=== PATIENT | female | born 1960 | race American Indian/Alaskan Native ===

== ENCOUNTER 2025-02-17 14:25 | Emergency (ER) | payer MEDICAID, SELFPAY ==
[2025-02-17 14:28] VITALS: BP 132/83; PULSE 72; RESP 19; TEMP 36.7; O2SAT 98
[2025-02-17 14:29] VITALS: BMI 25.7
--- NOTE | 2025-02-17 14:35 | EDNOTE_ITS ---
<Statement entered by Sayra Lauren MD - 02/17/25 16:00> As co-signing physician, I was present and available for consult prn. I concur with the plan and care as documented by the midlevel provider. ED General RME/HPI General Chief complaint: Medical Clearance Stated complaint: DETENTION CHECK Time Seen by Provider: 02/17/25 14:34 Arrival date/time: 02/17/25 14:25 CC: Medical clearance HPI patient has a laceration resulting from the arrest per the patient lacerated his over the left muslim. Patient denies LOC. Patient states he was climbing over a fence and then got tackled. Patient has no other complaints he is rambling on incessantly. Related Data Previous Rx's ?Medication ?Instructions ?Recorded Lactobacillus rhamnosus GG 10 1 cap PO BID #20 caps billion cell capsule (Culturelle) Allergies Allergy/AdvReac Type Severity Reaction Status Date / Time NKA Allergy Unknown Uncoded 02/17/25 14:30 Review of Systems Review of Systems Narrative Review of Systems: GEN: No fever, no chills, no weight loss EYES: No discharge, no visual changes, no pain HEENT: No ear pain, no congestion, no sore throat PULM: No shortness of breath, no cough, no congestion CV: No chest pain, no dyspnea on exertion, no palpitations GI: No nausea, no vomiting, no diarrhea, no pain, no constipation : No frequency, no urgency, no dysuria MUSC/SKEL: No joint pain, no back pain SKIN: + Laceration, no rash PSYCH: No hallucinations, no depression HEME/LYMPH: No easy bleeding or bruising tendencies NEURO: No weakness, no headache Past Medical History Past Medical History OTHER HISTORY: Negative Blood Transfusions Social History SMOKING STATUS: Current every day smoker ED Exam Narrative Physical exam: [General: Not in any acute distress Head normocephalic, no step-offs hematoma induration ulceration or crepitus. HEENT: Eyes pupils are PERRLA EOMs are intact mouth [place] dry membranes uvula is midline swallow symmetrical phonation is normal. Within acceptable limits Neck is supple nontender no edema or erythema. Chest equal chest rise nontender to palpation Respiratory: Clear to auscultation no wheezes crackles or rubs CV: Rate rhythm is regular no murmurs rubs or clicks Abdomen is distended secondary to body habitus soft nontender no masses positive bowel sounds all 4 quadrants Back: No CVA tenderness no spinous process tenderness from cervical spine thoracic and lumbar spine Skin: 1 cm full-thickness laceration to the left muslim. No active bleeding. Otherwise skin is intact no petechiae rash induration ulceration or crepitus Extremities: Moving all extremity against resistance cap refill less than 2 seconds neurosensory intact Neuro: Awake alert oriented x3 [place]ow coma 15 no focal deficits] Course Quality Measures none Vital Signs Vital signs: Vital Signs Temperature 98.0 F 02/17/25 14:28 Pulse Rate 72 02/17/25 14:28 Respiratory Rate 19 02/17/25 14:28 Blood Pressure 132/83 H 02/17/25 14:28 Pulse Oximetry (%) 98 02/17/25 14:28 Oxygen Delivery Method Room Air 02/17/25 14:28 PROCEDURES: Procedure Comment Site was cleaned no foreign body after probing, site with Dermabond with good approximation without complication patient tolerated the procedure well. Discharge Plan Plan Patient Disposition: Custodial/Court/Law Patient condition on transfer: Stable Prescriptions/Referrals Prescriptions/Med Rec: No Action Lactobacillus rhamnosus GG [Culturelle] 1 CAP capsule 1 cap PO BID Qty: 20 0RF Problem List Clinical Impression: Medical clearance for incarceration, Laceration of face Patient/Caregiver Discharge Instructions Education Materials: ED Laceration: All Closures Print Language: Serbian PA/KENO WRITER/RUNNER Supervising Physician PA/KENO WRITER/RUNNER Supervising Physician: Eliud Kenyon ENP
== END 2025-02-17 15:03 ==
LOC: SERX 14:48
PROVIDERS: Emergency Provider Emergency Medicine
DX: Z02.89 Encounter for other administrative examinations (principal); S01.81XA Laceration without foreign body of other part of head, initial encounter; Y35.813A Legal intervention involving manhandling, suspect injured, initial encounter; Y93.39 Activity, other involving climbing, rappelling and jumping off
CPT/HCPCS: 99281

== ENCOUNTER 2025-02-28 18:25 | Emergency (ER) | payer MEDICAID, SELFPAY ==
[2025-02-28 18:26] VITALS: BMI 25.7
[2025-02-28 18:46] VITALS: BP 113/62; PULSE 77; RESP 20; TEMP 37.4; O2SAT 97
--- NOTE | 2025-02-28 18:58 | XR_ITS ---
EXAMINATION: Sacrum and coccyx 3 views TECHNIQUE: AP, inclined AP lateral sacrum and coccyx 3 views Date and time: February 28, 2025, 192 hours INDICATIONS: Patient fell today with injury of the sacrum, sacral pain FINDINGS: Symmetrical sacral foramina No acute sacrococcygeal fracture IMPRESSION: No acute sacral or coccygeal fracture
--- NOTE | 2025-02-28 18:58 | XR_ITS ---
EXAMINATION: Lumbar spine 3 views TECHNIQUE: AP lateral: Lateral lower lumbar spine 3 views. Date and time: February 28, 2025, 191 hours INDICATIONS: Patient fell today with injury to lower back, lower back pain FINDINGS: Severe osteopenia Lumbar dextroscoliosis 15 degrees No acute lumbar fracture Mild to moderate diffuse lumbar disc narrowing IMPRESSION: No acute lumbar fracture
--- NOTE | 2025-03-01 02:52 | PD.EDBACK ---
ED Back Injury Pain RME/HPI General Chief Complaint: General Adult/Misc Complain Stated Complaint: BUMP TO R BUTTOCKS S/P FALLING ON BUTTOCKS Time Seen by Provider: 02/28/25 18:27 Arrival date/time: 02/28/25 18:25 This is a case of 64-year-old female with no medical history came in in the emergency room due to lower back pain and painful lump on the sacral area after falling incident and hit his sacral area on a stool sustaining hematoma patient denies any head neck chest or abdominal injury or loss of consciousness patient was here 02/17/2025 for medical clearance and laceration repair of the face Limitations: no limitations Related Data Previous Rx's ?Medication ?Instructions ?Recorded Lactobacillus rhamnosus GG 10 1 cap PO BID #20 caps 09/25/16 billion cell capsule (Culturelle) baclofen 10 mg tablet 10 mg PO BID PRN muscle spasm #10 02/28/25 tabs cephalexin 500 mg capsule 500 mg PO Q8H #30 caps 02/28/25 naproxen 500 mg tablet (Naprosyn) 500 mg PO BID PRN pain #20 tabs 02/28/25 Allergies Allergy/AdvReac Type Severity Reaction Status Date / Time NKA Allergy Unknown Uncoded 02/28/25 18:28 Review of Systems Review of Systems Systems Reviewed: All systems reviewed, normal except as documented Constitutional Constitutional: Reports system reviewed and no additional complaints, except as documented and Reports as per HPI ENT Ears, Nose, Mouth, and Throat: Denies neck pain Cardiovascular Cardiovascular: Reports system reviewed and no additional complaints, except as documented and Reports as per HPI Respiratory Respiratory: Reports system reviewed and no additional complaints, except as documented and Reports as per HPI Gastrointestinal Gastrointestinal: Reports system reviewed and no additional complaints, except as documented, Reports as per HPI and Denies abdominal pain Musculoskeletal Musculoskeletal: Reports system reviewed and no additional complaints, except as documented, Reports as per HPI, Reports back pain and Denies neck pain Neurologic Neurologic: Reports system reviewed and no additional complaints, except as documented and Reports as per HPI Past Medical History Past Medical History CARDIAC: Negative Congestive Heart Failure RESPIRATORY: Negative Chronic Obstructive Pulmonary Disease (COPD) GENITOURINARY: Negative Renal Disease ENDOCRINE: Negative Diabetes Mellitus Type 1 or Diabetes Mellitus Type 2 OTHER HISTORY: Negative Blood Transfusions Social History SMOKING STATUS: Light (< 1 pack/day) ED Exam General Limitations: Present no limitations General appearance: Present alert, in no apparent distress and other (Patient is awake alert oriented not in distress nontoxic looking well-hydrated well-nourished) Head Head exam: Present atraumatic; Absent normocephalic or normal inspection Eye Eye exam: Present normal appearance, PERRL and EOMI ENT ENT exam: Present normal exam, normal oropharynx and mucous membranes moist Neck Neck exam: Present normal inspection, full ROM and trachea midline; Absent tenderness, meningismus, lymphadenopathy or thyromegaly Chest Chest inspection: Present normal inspection and symmetric chest wall rise; Absent tenderness Respiratory Respiratory exam: Present normal lung sounds bilaterally; Absent respiratory distress, wheezes, stridor, accessory muscle use or prolonged expiratory phase Cardiovascular Cardiovascular exam: Present regular rate, normal rhythm and normal heart sounds; Absent bradycardia, tachycardia, irregular rhythm, systolic murmur or diastolic murmur Abdominal Exam Abdominal exam: Present soft and normal bowel sounds; Absent distention, tenderness, guarding, rebound, rigidity, diminished bowel sounds, hyperactive bowel sounds, hypoactive bowel sounds or organomegaly Extremities Exam Extremities exam: Present normal inspection and full ROM Back Exam Back exam: Present normal inspection, full ROM and tenderness (Moderate tenderness lumbar area hematoma on the sacral area with mild swelling no paraspinal no paravertebral tenderness no CVA tenderness ROM intact neurovascular intact); Absent CVA tenderness (R), CVA tenderness (L), muscle spasm, paraspinal tenderness, vertebral tenderness, rashes, sciatic notch tenderness (R), sciatic notch tenderness (L), straight leg raise (R) or straight leg raise (L) Neurological Exam Neurological exam: Present alert, oriented X3, CN II-XII intact, normal gait and reflexes normal; Absent motor sensory deficit Psychiatric Psychiatric exam: Present normal affect and normal mood Skin Skin exam: Present warm, dry, intact, normal color and other (Small hematoma sacral area no abscess no cellulitis) Course Quality Measures none Orders Category Date Time Status XR lumbar spine 2-3V Stat Exams 02/28/25 18:58 Completed XR sacrum coccyx min 2V Stat Exams 02/28/25 18:58 Completed Dexamethasone Inj [Decadron Inj] Med 02/28/25 21:13 Discontinued 10 mg IM X1 ONE HYDROcodone*/APAP 5/325 [[place] 5/325] Med 02/28/25 21:13 Discontinued 1 tab PO X1 ONE Vital Signs Vital signs: Vital Signs Temperature 99.3 F 02/28/25 18:46 Pulse Rate 77 02/28/25 18:46 Respiratory Rate 20 02/28/25 18:46 Blood Pressure 113/62 02/28/25 18:46 Pulse Oximetry (%) 97 02/28/25 18:46 Oxygen Delivery Method Room Air 02/28/25 18:46 Oxygen saturation is 97% on room air normal Back Pain / Injury MDM Narrative MDM Narrative:: This is a case of 64-year-old female with no medical history came in in the emergency room due to lower back pain and painful lump on the sacral area after falling incident and hit his sacral area on a stool sustaining hematoma patient denies any head neck chest or abdominal injury or loss of consciousness patient was here 02/17/2025 for medical clearance and laceration repair of the face physical examination patient is awake alert oriented not in distress nontoxic looking mild tenderness on the lumbar area no crepitation no deformity no paraspinal no paravertebral tenderness leg raise exam is negative no CVA tenderness steady gait patient noted a small hematoma on the sacral coccyx area no cellulitis no abscess ROM intact neurovascular intact x-ray of the lumbar and sacral area were normal no fracture no dislocation this patient was given naproxen and baclofen for lumbar sprain and sacral contusion patient was also given cephalexin for hematoma patient will follow-up with PCP for reevaluation and for any worsening symptoms or any emergent concern return precaution in the ER is advised Patient was discharged with comfortable condition walking with stable gait. Patient verbalized no further complains explained diagnosis and answered patient question. Patient is comfortable with the proposed management plan including the need to follow up with his/her primary care physician and any specialist if applicable Discussed patient for any urgent condition or worsening sx, He/She needed to go to emergency room immediately or call 911. Patient acknowledge the responsibility to follow up as instructed and to monitor her/his symptoms. For any persistence of the symptoms for more than 3-5 days return precaution advised. Discussed the result of the test and was given printed discharge instruction Patient data External records reviewed:: [facility] previous records Clinical information provided by:: patient Social determinants that could affect healthcare access:: none Patient has the following chronic illnesses:: None How is presenting disease/condition affected by chronic disease/condition?: no chronic disease Evaluation data The following diagnostics were reviewed and interpreted by me:: radiology exam(s) Lab and/or radiology exams considered but not ordered:: Reviewed Interpretation Summary: Reviewed Medications / Prescriptions Medications or Prescriptions considered but not ordered:: Given Medication administrations:: Medication Administration History Discontinued Medications Hydrocodone Bitart/Acetaminophen (Hydrocodone/Apap 5/325 Tablet) 1 tab PO X1 ONE Stop: 02/28/25 21:14 Dexamethasone Sodium Phosphate (Dexamethasone Sod Phos Inj 10 Mg/Ml Vial) 10 mg IM X1 ONE Stop: 02/28/25 21:14 Given Consultations Consultation(s) initiated? (list below): No Diagnosis Differential diagnosis back pain/injury: other (Contusion and sprain) Most likely diagnosis given after review of the tests above:: Contusion sprain Admission Indicated Admission indicated?: not indicated Explain why admission is indicated or not indicated:: Not indicated Admission Request Was there a request for admission?: No Admission Attestation Admission request attestation: Not indicated Disposition Plan Disposition Plan: Discharge Discharge Attestation Discharge Attestation: The patient and all family members were given an opportunity to ask questions and understood the discharge instructions. Discharge instructions specifically effects, indications for sooner follow up or return to the emergency department, and the expected course of current diagnosis. Patient condition: Stable Discharge Plan Plan Patient Disposition: HOME (Self Care) Patient condition on transfer: Stable Prescriptions/Referrals Prescriptions/Med Rec: New naproxen [Naprosyn] 500 mg tablet 500 mg PO BID PRN (Reason: pain) Qty: 20 0RF baclofen 10 mg tablet 10 mg PO BID PRN (Reason: muscle spasm) Qty: 10 0RF cephalexin 500 mg capsule 500 mg PO Q8H Qty: 30 0RF No Action Lactobacillus rhamnosus GG [Culturelle] 1 CAP capsule 1 cap PO BID Qty: 20 0RF Referrals: Rodrigue Loredo MD [Primary Care Provider, Family Practice] - In 1 week Problem List Clinical Impression: Lumbar sprain, Hematoma of sacrum Patient/Caregiver Discharge Instructions Education Materials: Bruises (Contusions), ED Back Sprain/Strain, ED Coccyx or Sacrum Contusion, ED Hematoma Additional Instructions: Follow-up with your primary care physician in 2 days for reevaluation worsening symptoms or any emergent concerns such as numbness weakness tingling sensation incontinence to urine or stool call 911 or go to the nearest emergency room ice pack and warm compress every 4 hours for 24 hours then as needed for pain take your medication as directed and finish the course of antibiotic to prevent infection Print Language: Tajik Stand Alone Forms: Sandra Award Info., Patient Portal Info Letter PA/NARROW GAUGE ENGINEER Supervising Physician PA/NARROW GAUGE ENGINEER Supervising Physician: Dr. Crespo
== END 2025-02-28 21:21 | disposition home or self-care (01) ==
PROVIDERS: Emergency Provider Emergency Medicine; PCP Family Medicine
DX: S33.5XXA Sprain of ligaments of lumbar spine, initial encounter (principal); W19.XXXA Unspecified fall, initial encounter
CPT/HCPCS: 72100; 72220; 99283

== ENCOUNTER → 2025-03-26 | Outpatient (CLI) | payer MEDICAID, SELFPAY ==
--- NOTE | 2025-03-26 12:29 | XR_ITS ---
Examination: Foot, right, 3 views Technique: AP, oblique, lateral views foot, 3 views Date and time of exam: March 26, 2025, 1241 hours INDICATIONS: Injury to the foot 2 months ago with second digit pain. FINDINGS: Prominent hallux valgus and bunion deformity Moderate osteoarthritis first metatarsophalangeal joint Prominent osteopenia No acute fracture Small plantar bony calcaneal spur IMPRESSION: No acute fracture
== END | disposition home or self-care (01) ==
PROVIDERS: PCP Nurse Practitioner Family; Referring Provider Nurse Practitioner Family; Visit Provider Nurse Practitioner Family
DX: S99.921A Unspecified injury of right foot, initial encounter (principal); Y09 Assault by unspecified means
CPT/HCPCS: 73630